=== PATIENT | male | born 1980 | race Caucasian/White ===

== ENCOUNTER 2019-10-04 20:53 | Inpatient (IN) | payer MEDICAID ==
[~2019-10-04] VITALS: Ht 175.3 cm; Wt 86.2 kg
[2019-10-04 21:04] VITALS: BP 154/84
[2019-10-04] MEDS ORDERED: OLAN10TA3 PO (21:18)
[2019-10-04] MEDS ORDERED: GABA-531 PO (21:18)
[2019-10-04] MEDS ORDERED: ESCI20TA PO (21:18)
[2019-10-04] MEDS ORDERED: BUPR-93 PO (21:18)
[2019-10-04] MEDS ORDERED: ZOLPIDEM TARTRATE 10 MG TABLET PO PRN (21:30)
[2019-10-04] MEDS ORDERED: HALOPERIDOL 5 MG TABLET PO PRN (21:30)
[2019-10-04 21:40] VITALS: BP 135/91
[2019-10-04] MEDS ORDERED: LISI-662 PO (21:41)
[2019-10-04] MEDS: OLANZapine 10 MG TABLET PO SCH (21:42)
[2019-10-04] MEDS ORDERED: PNEUMOCOCCAL VACCINE POLYVALENT 0.5 ML VIAL [PPSV23] IM ONE (21:45)
[2019-10-04 22:40] VITALS: BP 138/96
[2019-10-04 23:05] VITALS: BP 138/91
[2019-10-04 23:40] VITALS: BP 117/76
[2019-10-05] VITALS (10 sets, daily range): BP systolic 106–130; BP diastolic 56–83
[2019-10-05] MEDS ORDERED: IBUPROFEN 400 MG TABLET PO PRN (08:30)
[2019-10-05] MEDS ORDERED: ONDANSETRON HCL 4 MG TABLET PO PRN (08:30)
[2019-10-05] MEDS ORDERED: LOPERAMIDE HCL 2 MG CAPSULE PO PRN (08:30)
[2019-10-05] MEDS ORDERED: DOCUSATE SODIUM 100 MG CAPSULE PO PRN (08:30)
[2019-10-05] MEDS ORDERED: MAG HYDROX/AL HYDROX/SIMETH ES 30 ML SUSPENSION UDCUP PO PRN (08:30)
[2019-10-05] MEDS ORDERED: NICOTINE 14 MG/24 HOUR PATCH TD PRN (08:30)
[2019-10-05] MEDS ORDERED: GuaiFENesin/D-METHORPHAN [SUGAR-FREE] 200-20MG/10 ML SYRUP UDCUP PO PRN (08:30)
[2019-10-05] MEDS ORDERED: ALBUTEROL SULFATE HFA 90 MCG/PUFF 8 GM INHALER IH PRN (08:30)
[2019-10-05] MEDS ORDERED: CloNIDine HCL 0.1 MG TABLET PO PRN (08:30)
[2019-10-05] MEDS ORDERED: MAGNESIUM HYDROXIDE SUSPENSION 30 ML UDCUP PO PRN (08:30)
[2019-10-05] MEDS ORDERED: PETROLATUM,WHITE 28 GM JELLY TP PRN (08:30)
[2019-10-05] MEDS ORDERED: ACETAMINOPHEN 325 MG TABLET PO PRN (08:30)
[2019-10-05] MEDS: BuPROPion HCL XL 150 MG ER TABLET PO SCH (08:58)
[2019-10-05] MEDS: GABAPENTIN 300 MG CAPSULE PO SCH ×3 (08:58→16:11)
[2019-10-05] MEDS: CEPHALEXIN MONOHYDRATE 500 MG CAPSULE PO SCH ×2 (08:59→16:11)
[2019-10-05] MEDS: ESCITALOPRAM OXALATE 20 MG TABLET PO SCH (08:59)
[2019-10-05] MEDS: OLANZapine 10 MG TABLET PO SCH ×2 (08:59→16:11)
[2019-10-05] MEDS: LISINOPRIL 20 MG TABLET PO SCH (08:59)
[2019-10-05] MEDS ORDERED: LISINOPRIL 20 MG TABLET PO SCH (09:00)
[2019-10-05] MEDS ORDERED: GABAPENTIN 300 MG CAPSULE PO SCH (09:00)
[2019-10-05 09:44] LABS: CHOL/HDL RATIO 3.1 (4.2-7.3)
[2019-10-06] VITALS (11 sets, daily range): BP systolic 100–129; BP diastolic 57–77
[2019-10-06] MEDS: ESCITALOPRAM OXALATE 20 MG TABLET PO SCH (08:32)
[2019-10-06] MEDS: CEPHALEXIN MONOHYDRATE 500 MG CAPSULE PO SCH ×2 (08:32→16:34)
[2019-10-06] MEDS: BuPROPion HCL XL 150 MG ER TABLET PO SCH (08:32)
[2019-10-06] MEDS: LISINOPRIL 20 MG TABLET PO SCH (08:32)
[2019-10-06] MEDS: OLANZapine 10 MG TABLET PO SCH ×2 (08:33→16:34)
[2019-10-06] MEDS: GABAPENTIN 300 MG CAPSULE PO SCH ×3 (08:33→16:34)
[2019-10-06] MEDS: LORazepam 2 MG TABLET PO PRN (11:46)
[2019-10-06] MEDS ORDERED: IBUPROFEN 600 MG TABLET PO PRN (13:15)
[2019-10-06] MEDS ORDERED: HydrOXYzine PAMOATE 50 MG CAPSULE PO PRN (13:15)
[2019-10-06] MEDS ORDERED: MAG HYDROX/AL HYDROX/SIMETH ES 30 ML SUSPENSION UDCUP PO PRN (13:15)
[2019-10-06] MEDS ORDERED: CloNIDine HCL 0.1 MG TABLET PO PRN (13:15)
[2019-10-06] MEDS: CloNIDine HCL 0.1 MG TABLET PO SCH ×2 (16:34→21:04)
[2019-10-07] VITALS (8 sets, daily range): BP systolic 102–125; BP diastolic 68–78
[2019-10-07] MEDS: CloNIDine HCL 0.1 MG TABLET PO SCH ×4 (06:00→22:12)
[2019-10-07 07:42] LABS: BASOPHILS % (AUTO) 0.9 % (0.0-2.0); EOSINOPHILS % (AUTO) 2.5 % (1.0-6.0); HEMATOCRIT 41.8 % (41-53); HEMOGLOBIN 13.5 g/dL (13.5-17.5); LYMPHOCYTES # (AUTO) 1.4 K/uL (1.0-4.8); LYMPHOCYTES % (AUTO) 23.2 % (22.0-44.0); MEAN CORPUSCULAR HEMOGLOBIN 28.4 pg (26.0-34.0); MEAN CORPUSCULAR HGB CONC 32.2 G/dL (31.0-37.0); MEAN CORPUSCULAR VOLUME 88 fL (80-100); MONOCYTES # (AUTO) 0.3 K/uL (0.1-1.0); MONOCYTES % (AUTO) 5.4 % (2.0-9.0); NEUTROPHILS # (AUTO) 4.2 K/uL (1.8-7.7); PLATELET COUNT (AUTO) 304 K/uL (150-450); RED BLOOD CELL COUNT(AUTO) 4.75 MIL/uL (4.50-5.90); RED CELL DISTRIBUTION WIDTH 13.8 % (11.5-14.5)
[2019-10-07] MEDS: LISINOPRIL 20 MG TABLET PO SCH (08:12)
[2019-10-07] MEDS: BuPROPion HCL XL 150 MG ER TABLET PO SCH (08:12)
[2019-10-07] MEDS: GABAPENTIN 300 MG CAPSULE PO SCH ×3 (08:12→17:34)
[2019-10-07] MEDS: CEPHALEXIN MONOHYDRATE 500 MG CAPSULE PO SCH ×2 (08:12→17:35)
[2019-10-07] MEDS: ESCITALOPRAM OXALATE 20 MG TABLET PO SCH (08:12)
[2019-10-07] MEDS: OLANZapine 10 MG TABLET PO SCH ×2 (08:12→17:34)
[2019-10-07] MEDS: LORazepam 2 MG TABLET PO PRN (09:36)
[2019-10-08 05:33] VITALS: BP 128/86
[2019-10-08 05:35] VITALS: BP 128/86
[2019-10-08] MEDS: CloNIDine HCL 0.1 MG TABLET PO SCH ×4 (06:00→21:29)
[2019-10-08] MEDS: LORazepam 2 MG TABLET PO PRN (07:17)
[2019-10-08] MEDS: GABAPENTIN 300 MG CAPSULE PO SCH ×3 (08:25→16:08)
[2019-10-08] MEDS: LISINOPRIL 20 MG TABLET PO SCH (08:25)
[2019-10-08] MEDS: BuPROPion HCL XL 150 MG ER TABLET PO SCH (08:25)
[2019-10-08] MEDS: CEPHALEXIN MONOHYDRATE 500 MG CAPSULE PO SCH ×2 (08:25→16:08)
[2019-10-08] MEDS: ESCITALOPRAM OXALATE 20 MG TABLET PO SCH (08:25)
[2019-10-08] MEDS: OLANZapine 10 MG TABLET PO SCH ×2 (08:25→16:08)
[2019-10-08 08:41] VITALS: BP 135/85
[2019-10-08 12:30] VITALS: BP 121/60
[2019-10-08 16:00] VITALS: BP 108/65
[2019-10-08 16:15] VITALS: BP 108/65
[2019-10-09 05:38] VITALS: BP 127/72
[2019-10-09 05:39] VITALS: BP 127/72
[2019-10-09] MEDS: CloNIDine HCL 0.1 MG TABLET PO SCH ×4 (06:22→21:57)
[2019-10-09 08:55] VITALS: BP 116/71
[2019-10-09] MEDS: OLANZapine 10 MG TABLET PO SCH ×2 (08:57→16:32)
[2019-10-09] MEDS: BuPROPion HCL XL 150 MG ER TABLET PO SCH (08:57)
[2019-10-09] MEDS: GABAPENTIN 300 MG CAPSULE PO SCH ×3 (08:57→16:32)
[2019-10-09] MEDS: ESCITALOPRAM OXALATE 20 MG TABLET PO SCH (08:57)
[2019-10-09] MEDS: CEPHALEXIN MONOHYDRATE 500 MG CAPSULE PO SCH ×2 (08:57→17:21)
[2019-10-09] MEDS: LISINOPRIL 20 MG TABLET PO SCH (08:57)
[2019-10-09] MEDS: LORazepam 2 MG TABLET PO PRN (09:36)
[2019-10-09 12:35] VITALS: BP 112/75
[2019-10-09 16:00] VITALS: BP 124/75
[2019-10-09 16:16] VITALS: BP 124/75
[2019-10-10] VITALS (7 sets, daily range): BP systolic 101–133; BP diastolic 63–78
[2019-10-10] MEDS: LORazepam 2 MG TABLET PO PRN (05:58)
[2019-10-10] MEDS: CloNIDine HCL 0.1 MG TABLET PO SCH ×2 (06:15→12:09)
[2019-10-10] MEDS: ESCITALOPRAM OXALATE 20 MG TABLET PO SCH (08:10)
[2019-10-10] MEDS: BuPROPion HCL XL 150 MG ER TABLET PO SCH (08:10)
[2019-10-10] MEDS: LISINOPRIL 20 MG TABLET PO SCH (08:10)
[2019-10-10] MEDS: GABAPENTIN 300 MG CAPSULE PO SCH ×2 (08:10→12:09)
[2019-10-10] MEDS: OLANZapine 10 MG TABLET PO SCH (08:10)
== END 2019-10-10 20:03 | disposition home or self-care (01) | DRG 750 ==
LOC: B2S 21:33
PROVIDERS: ADMIT Psychiatry & Neurology Psychiatry; ATTEND Psychiatry & Neurology Psychiatry
DX: F25.9 Schizoaffective disorder, unspecified (principal); R45.851 Suicidal ideations; F10.10 Alcohol abuse, uncomplicated; F15.90 Other stimulant use, unspecified, uncomplicated; F32.9 Major depressive disorder, single episode, unspecified; F41.9 Anxiety disorder, unspecified; I10 Essential (primary) hypertension; Z79.899 Other long term (current) drug therapy; Z91.5 Personal history of self-harm
CPT/HCPCS: 84439; 84443; 87081

== ENCOUNTER 2019-10-21 16:22 | Inpatient (IN) | payer MEDICAID ==
[~2019-10-21] VITALS: Ht 175.3 cm; Wt 86.8 kg
[~2019-10-21 16:22] MED LIST: BUPR-93 PO; ESCI20TA PO; GABA-531 PO; LISI-662 PO; OLAN10TA3 PO
[2019-10-21] MEDS ORDERED: HALOPERIDOL 5 MG TABLET PO PRN (22:00)
[2019-10-21] MEDS ORDERED: ZOLPIDEM TARTRATE 10 MG TABLET PO PRN (22:00)
[2019-10-21 22:42] VITALS: BP 133/75
[2019-10-21] MEDS ORDERED: PNEUMOCOCCAL VACCINE POLYVALENT 0.5 ML VIAL [PPSV23] IM ONE (22:45)
[2019-10-22] MEDS: LORazepam 2 MG TABLET PO PRN (00:50)
[2019-10-22 01:17] VITALS: BP 134/94
[2019-10-22 08:57] VITALS: BP 140/81
[2019-10-22] MEDS ORDERED: ONDANSETRON HCL 4 MG TABLET PO PRN (13:15)
[2019-10-22] MEDS ORDERED: DOCUSATE SODIUM 100 MG CAPSULE PO PRN (13:15)
[2019-10-22] MEDS ORDERED: IBUPROFEN 400 MG TABLET PO PRN (13:15)
[2019-10-22] MEDS ORDERED: ACETAMINOPHEN 325 MG TABLET PO PRN (13:15)
[2019-10-22] MEDS ORDERED: MAG HYDROX/AL HYDROX/SIMETH ES 30 ML SUSPENSION UDCUP PO PRN (13:15)
[2019-10-22] MEDS ORDERED: MAGNESIUM HYDROXIDE SUSPENSION 30 ML UDCUP PO PRN (13:15)
[2019-10-22] MEDS ORDERED: CloNIDine HCL 0.1 MG TABLET PO PRN (13:15)
[2019-10-22] MEDS ORDERED: PETROLATUM,WHITE 28 GM JELLY TP PRN (13:15)
[2019-10-22] MEDS: OLANZapine 10 MG TABLET PO SCH ×2 (13:15→17:11)
[2019-10-22] MEDS ORDERED: ALBUTEROL SULFATE HFA 90 MCG/PUFF 8 GM INHALER IH PRN (13:15)
[2019-10-22] MEDS ORDERED: NICOTINE 14 MG/24 HOUR PATCH TD PRN (13:15)
[2019-10-22] MEDS ORDERED: GuaiFENesin/D-METHORPHAN [SUGAR-FREE] 200-20MG/10 ML SYRUP UDCUP PO PRN (13:15)
[2019-10-22] MEDS ORDERED: LOPERAMIDE HCL 2 MG CAPSULE PO PRN (13:15)
[2019-10-22] MEDS: ESCITALOPRAM OXALATE 20 MG TABLET PO SCH (13:16)
[2019-10-22] MEDS: BuPROPion HCL XL 150 MG ER TABLET PO SCH (13:16)
[2019-10-22] MEDS: GABAPENTIN 300 MG CAPSULE PO SCH ×2 (13:16→17:10)
[2019-10-22 16:32] VITALS: BP 122/77
[2019-10-23 06:01] VITALS: BP 122/86
[2019-10-23 08:14] VITALS: BP 138/42
[2019-10-23 08:15] LABS: BASOPHILS % (AUTO) 0.6 % (0.0-2.0); EOSINOPHILS % (AUTO) 2.8 % (1.0-6.0); HEMATOCRIT 42.6 % (41-53); HEMOGLOBIN 13.7 g/dL (13.5-17.5); LYMPHOCYTES # (AUTO) 1.3 K/uL (1.0-4.8); LYMPHOCYTES % (AUTO) 22.9 % (22.0-44.0); MEAN CORPUSCULAR HEMOGLOBIN 28.2 pg (26.0-34.0); MEAN CORPUSCULAR HGB CONC 32.2 G/dL (31.0-37.0); MEAN CORPUSCULAR VOLUME 87 fL (80-100); MONOCYTES # (AUTO) 0.4 K/uL (0.1-1.0); MONOCYTES % (AUTO) 6.4 % (2.0-9.0); NEUTROPHILS # (AUTO) 3.9 K/uL (1.8-7.7); NEUTROPHILS % (AUTO) 67.3 % (40.0-70.0); PLATELET COUNT (AUTO) 228 K/uL (150-450); RED BLOOD CELL COUNT(AUTO) 4.88 MIL/uL (4.50-5.90); RED CELL DISTRIBUTION WIDTH 13.5 % (11.5-14.5)
[2019-10-23 08:32] LABS: ALANINE AMINOTRANSFERASE 348 U/L (12-78); ALBUMIN 3.5 g/dL (3.4-5.0); ALKALINE PHOSPHATASE 95 U/L (46-116); ANION GAP 7 mmol/L (8-16); ASPARTATE AMINOTRANSFERASE 160 U/L (15-37); BILIRUBIN,TOTAL 0.6 mg/dL (0.1-1.0); CALCIUM, TOTAL 8.9 mg/dL (8.8-10.5); CARBON DIOXIDE 28 mmol/L (22-29); CHLORIDE 108 mmol/L (98-107); CHOL/HDL RATIO 2.5 (4.2-7.3); CHOLESTEROL 98 mg/dL (131-200); CREATININE 0.75 mg/dL (0.60-1.30); FREE T4 (FREE THYROXINE) 1.17 ng/dL (0.76-1.46); GLOMERULAR FILTR. RATE CALC > 60 mL/min (>60); GLUCOSE,RANDOM 85 mg/dL (70-110); HDL CHOLESTEROL 39 mg/dL (40-60); LDL CHOL (CALC.) 42 mg/dL (0-130); POTASSIUM 4.1 mmol/L (3.5-5.1); SODIUM SERUM 143 mmol/L (136-145); THYROID STIMULATING HORMONE 0.04 uIU/mL (0.36-3.74); TOTAL PROTEIN, SERUM 6.7 g/dL (6.4-8.2); TRIGLYCERIDES 85 mg/dL (15-150); UREA NITROGEN, BLOOD 17 mg/dL (7-18)
[2019-10-23] MEDS: ESCITALOPRAM OXALATE 20 MG TABLET PO SCH (09:23)
[2019-10-23] MEDS: BuPROPion HCL XL 150 MG ER TABLET PO SCH (09:23)
[2019-10-23] MEDS: LISINOPRIL 20 MG TABLET PO SCH (09:23)
[2019-10-23] MEDS: OLANZapine 10 MG TABLET PO SCH ×2 (09:23→16:46)
[2019-10-23] MEDS: GABAPENTIN 300 MG CAPSULE PO SCH ×3 (09:23→16:46)
[2019-10-23] MEDS: LORazepam 2 MG TABLET PO PRN ×2 (10:13→21:12)
[2019-10-23 16:13] VITALS: BP 136/77
[2019-10-24 06:37] VITALS: BP 127/71
[2019-10-24 08:40] VITALS: BP 130/79
[2019-10-24] MEDS: ESCITALOPRAM OXALATE 20 MG TABLET PO SCH (09:07)
[2019-10-24] MEDS: BuPROPion HCL XL 150 MG ER TABLET PO SCH (09:07)
[2019-10-24] MEDS: GABAPENTIN 300 MG CAPSULE PO SCH ×3 (09:07→16:56)
[2019-10-24] MEDS: OLANZapine 10 MG TABLET PO SCH ×2 (09:07→16:56)
[2019-10-24] MEDS: LISINOPRIL 20 MG TABLET PO SCH (09:07)
[2019-10-24] MEDS: LORazepam 2 MG TABLET PO PRN (12:01)
[2019-10-24 16:14] VITALS: BP 129/80
[2019-10-25 05:09] VITALS: BP 122/70
[2019-10-25 08:21] VITALS: BP 122/77
[2019-10-25] MEDS: BuPROPion HCL XL 150 MG ER TABLET PO SCH (08:29)
[2019-10-25] MEDS: OLANZapine 10 MG TABLET PO SCH ×2 (08:29→16:38)
[2019-10-25] MEDS: GABAPENTIN 300 MG CAPSULE PO SCH ×3 (08:29→16:38)
[2019-10-25] MEDS: LISINOPRIL 20 MG TABLET PO SCH (08:29)
[2019-10-25] MEDS: ESCITALOPRAM OXALATE 20 MG TABLET PO SCH (08:29)
[2019-10-25] MEDS: LORazepam 2 MG TABLET PO PRN (15:28)
[2019-10-25 16:23] VITALS: BP 130/85
[2019-10-26 06:04] VITALS: BP 107/76
[2019-10-26] MEDS: BuPROPion HCL XL 150 MG ER TABLET PO SCH (08:31)
[2019-10-26] MEDS: OLANZapine 10 MG TABLET PO SCH ×2 (08:31→16:59)
[2019-10-26] MEDS: LISINOPRIL 20 MG TABLET PO SCH (08:31)
[2019-10-26] MEDS: GABAPENTIN 300 MG CAPSULE PO SCH ×3 (08:31→16:59)
[2019-10-26] MEDS: ESCITALOPRAM OXALATE 20 MG TABLET PO SCH (08:32)
[2019-10-26 08:34] VITALS: BP 131/73
[2019-10-26] MEDS: LORazepam 2 MG TABLET PO PRN (10:09)
[2019-10-26 16:14] VITALS: BP 119/73
[2019-10-27 01:16] VITALS: BP 114/74
[2019-10-27] MEDS: LORazepam 2 MG TABLET PO PRN ×2 (08:41→16:26)
[2019-10-27] MEDS: BuPROPion HCL XL 150 MG ER TABLET PO SCH (08:41)
[2019-10-27] MEDS: GABAPENTIN 300 MG CAPSULE PO SCH ×3 (08:41→16:26)
[2019-10-27] MEDS: OLANZapine 10 MG TABLET PO SCH ×2 (08:41→16:26)
[2019-10-27] MEDS: LISINOPRIL 20 MG TABLET PO SCH (08:41)
[2019-10-27] MEDS: ESCITALOPRAM OXALATE 20 MG TABLET PO SCH (08:41)
[2019-10-27 08:55] VITALS: BP 143/91
[2019-10-27 17:04] VITALS: BP 112/74
[2019-10-28 02:56] VITALS: BP 108/75
[2019-10-28 08:19] LABS: ANION GAP 8 mmol/L (8-16); CARBON DIOXIDE 29 mmol/L (22-29); CHLORIDE 108 mmol/L (98-107); CREATININE 0.79 mg/dL (0.60-1.30); GLUCOSE,RANDOM 90 mg/dL (70-110); POTASSIUM 4.2 mmol/L (3.5-5.1); SODIUM SERUM 145 mmol/L (136-145); UREA NITROGEN, BLOOD 16 mg/dL (7-18)
[2019-10-28] MEDS: BuPROPion HCL XL 150 MG ER TABLET PO SCH (08:19)
[2019-10-28] MEDS: ESCITALOPRAM OXALATE 20 MG TABLET PO SCH (08:19)
[2019-10-28] MEDS: LISINOPRIL 20 MG TABLET PO SCH (08:19)
[2019-10-28] MEDS: OLANZapine 10 MG TABLET PO SCH ×2 (08:19→16:34)
[2019-10-28] MEDS: GABAPENTIN 300 MG CAPSULE PO SCH ×3 (08:19→16:34)
[2019-10-28 08:20] LABS: ALANINE AMINOTRANSFERASE 424 U/L (12-78); ALBUMIN 3.5 g/dL (3.4-5.0); ALKALINE PHOSPHATASE 109 U/L (46-116); ASPARTATE AMINOTRANSFERASE 173 U/L (15-37); BILIRUBIN,TOTAL 0.4 mg/dL (0.1-1.0); CALCIUM, TOTAL 9.2 mg/dL (8.8-10.5); GLOMERULAR FILTR. RATE CALC > 60 mL/min (>60); TOTAL PROTEIN, SERUM 6.9 g/dL (6.4-8.2)
[2019-10-28 08:34] VITALS: BP 128/83
[2019-10-28] MEDS: LORazepam 2 MG TABLET PO PRN ×2 (10:11→16:49)
[2019-10-28 16:16] VITALS: BP 120/79
[2019-10-29 00:34] VITALS: BP 107/68
[2019-10-29] MEDS: LISINOPRIL 20 MG TABLET PO SCH (08:06)
[2019-10-29] MEDS: MULTIVITAMINS WITH MINERALS, THERAPEUTIC TABLET PO SCH (08:06)
[2019-10-29] MEDS: ESCITALOPRAM OXALATE 20 MG TABLET PO SCH (08:06)
[2019-10-29] MEDS: FOLIC ACID 1 MG TABLET PO SCH (08:06)
[2019-10-29] MEDS: OLANZapine 10 MG TABLET PO SCH ×2 (08:07→16:21)
[2019-10-29] MEDS: BuPROPion HCL XL 150 MG ER TABLET PO SCH (08:07)
[2019-10-29] MEDS: GABAPENTIN 300 MG CAPSULE PO SCH ×3 (08:07→16:22)
[2019-10-29] MEDS: THIAMINE HCL 100 MG TABLET PO SCH (08:07)
[2019-10-29 08:22] VITALS: BP 107/60
[2019-10-29] MEDS: LORazepam 2 MG TABLET PO PRN ×2 (13:23→21:41)
[2019-10-29 16:14] VITALS: BP 116/82
[2019-10-30 06:51] VITALS: BP 137/81
[2019-10-30] MEDS: THIAMINE HCL 100 MG TABLET PO SCH (08:48)
[2019-10-30] MEDS: LISINOPRIL 20 MG TABLET PO SCH (08:48)
[2019-10-30] MEDS: BuPROPion HCL XL 150 MG ER TABLET PO SCH (08:48)
[2019-10-30] MEDS: GABAPENTIN 300 MG CAPSULE PO SCH ×2 (08:48→12:57)
[2019-10-30] MEDS: OLANZapine 10 MG TABLET PO SCH (08:48)
[2019-10-30] MEDS: FOLIC ACID 1 MG TABLET PO SCH (08:48)
[2019-10-30] MEDS: ESCITALOPRAM OXALATE 20 MG TABLET PO SCH (08:48)
[2019-10-30] MEDS: MULTIVITAMINS WITH MINERALS, THERAPEUTIC TABLET PO SCH (08:48)
== END 2019-10-30 13:50 | disposition home or self-care (01) | DRG 750 ==
LOC: B2S 22:01
PROVIDERS: ADMIT Psychiatry & Neurology Psychiatry; ATTEND Psychiatry & Neurology Psychiatry
DX: F25.9 Schizoaffective disorder, unspecified (principal); Z59.0 Homelessness; R45.851 Suicidal ideations; F10.10 Alcohol abuse, uncomplicated; F19.20 Other psychoactive substance dependence, uncomplicated; I10 Essential (primary) hypertension; Y90.9 Presence of alcohol in blood, level not specified; F25.1 Schizoaffective disorder, depressive type; Z91.5 Personal history of self-harm; Z91.14 Patient's other noncompliance with medication regimen; Z28.21 Immunization not carried out because of patient refusal
CPT/HCPCS: 83036; 84439; 84443; 87081

== ENCOUNTER 2019-11-29 09:11 | Inpatient (IN) | payer MEDICAID ==
[~2019-11-29] VITALS: Ht 175.3 cm; Wt 84.8 kg
[~2019-11-29 09:11] MED LIST changes: -ESCI20TA PO; +ESCI20TA87 PO; +GABA-1181 PO; -GABA-531 PO
[2019-11-29 13:19] VITALS: BP 138/98
[2019-11-29] MEDS ORDERED: PNEUMOCOCCAL VACCINE POLYVALENT 0.5 ML VIAL [PPSV23] IM ONE (13:30)
[2019-11-29 16:00] VITALS: BP 137/91
[2019-11-29] MEDS ORDERED: CloNIDine HCL 0.1 MG TABLET PO PRN (16:00)
[2019-11-29] MEDS ORDERED: DOCUSATE SODIUM 100 MG CAPSULE PO PRN (16:00)
[2019-11-29] MEDS ORDERED: MAGNESIUM HYDROXIDE SUSPENSION 30 ML UDCUP PO PRN (16:00)
[2019-11-29] MEDS ORDERED: GuaiFENesin/D-METHORPHAN [SUGAR-FREE] 200-20MG/10 ML SYRUP UDCUP PO PRN (16:00)
[2019-11-29] MEDS ORDERED: ALBUTEROL SULFATE HFA 90 MCG/PUFF 8 GM INHALER IH PRN (16:00)
[2019-11-29] MEDS ORDERED: IBUPROFEN 400 MG TABLET PO PRN (16:00)
[2019-11-29] MEDS ORDERED: PETROLATUM,WHITE 28 GM JELLY TP PRN (16:00)
[2019-11-29] MEDS ORDERED: ACETAMINOPHEN 325 MG TABLET PO PRN (16:00)
[2019-11-29] MEDS ORDERED: NICOTINE 14 MG/24 HOUR PATCH TD PRN (16:00)
[2019-11-29] MEDS ORDERED: LOPERAMIDE HCL 2 MG CAPSULE PO PRN (16:00)
[2019-11-29] MEDS ORDERED: ONDANSETRON HCL 4 MG TABLET PO PRN (16:00)
[2019-11-29] MEDS ORDERED: MAG HYDROX/AL HYDROX/SIMETH ES 30 ML SUSPENSION UDCUP PO PRN (16:00)
[2019-11-29] MEDS: OLANZapine 10 MG TABLET PO SCH (16:31)
[2019-11-29] MEDS: GABAPENTIN 300 MG CAPSULE PO SCH (16:31)
[2019-11-29] MEDS: LORazepam 2 MG TABLET PO PRN (16:48)
[2019-11-30 00:03] VITALS: BP 128/88
[2019-11-30 08:25] LABS: BASOPHILS % (AUTO) 0.6 % (0.0-2.0); EOSINOPHILS % (AUTO) 3.1 % (1.0-6.0); HEMATOCRIT 40.7 % (41-53); HEMOGLOBIN 13.7 g/dL (13.5-17.5); LYMPHOCYTES # (AUTO) 1.5 K/uL (1.0-4.8); LYMPHOCYTES % (AUTO) 24.8 % (22.0-44.0); MEAN CORPUSCULAR HGB CONC 33.5 G/dL (31.0-37.0); MEAN CORPUSCULAR VOLUME 86 fL (80-100); MONOCYTES # (AUTO) 0.4 K/uL (0.1-1.0); MONOCYTES % (AUTO) 6.6 % (2.0-9.0); NEUTROPHILS % (AUTO) 64.9 % (40.0-70.0); PLATELET COUNT (AUTO) 238 K/uL (150-450); RED BLOOD CELL COUNT(AUTO) 4.71 MIL/uL (4.50-5.90); RED CELL DISTRIBUTION WIDTH 13.2 % (11.5-14.5)
[2019-11-30 08:33] LABS: HEMOGLOBIN A1C 5.3 % (3.8-5.6)
[2019-11-30] MEDS: GABAPENTIN 300 MG CAPSULE PO SCH ×3 (08:42→16:43)
[2019-11-30] MEDS: OLANZapine 10 MG TABLET PO SCH ×2 (08:42→16:43)
[2019-11-30] MEDS: ESCITALOPRAM OXALATE 20 MG TABLET PO SCH (08:42)
[2019-11-30] MEDS: BuPROPion HCL XL 150 MG ER TABLET PO SCH (08:42)
[2019-11-30 08:50] VITALS: BP 131/79
[2019-11-30 08:59] LABS: ALANINE AMINOTRANSFERASE 183 U/L (12-78); ALBUMIN 3.5 g/dL (3.4-5.0); ALKALINE PHOSPHATASE 81 U/L (46-116); ANION GAP 9 mmol/L (8-16); ASPARTATE AMINOTRANSFERASE 82 U/L (15-37); BILIRUBIN,TOTAL 0.7 mg/dL (0.1-1.0); CARBON DIOXIDE 27 mmol/L (22-29); CHLORIDE 106 mmol/L (98-107); CHOL/HDL RATIO 2.8 (4.2-7.3); CHOLESTEROL 99 mg/dL (131-200); CREATININE 0.85 mg/dL (0.60-1.30); GLOMERULAR FILTR. RATE CALC > 60 mL/min (>60); GLUCOSE,RANDOM 92 mg/dL (70-110); HDL CHOLESTEROL 35 mg/dL (40-60); LDL CHOL (CALC.) 48 mg/dL (0-130); POTASSIUM 4.4 mmol/L (3.5-5.1); SODIUM SERUM 142 mmol/L (136-145); TOTAL PROTEIN, SERUM 6.8 g/dL (6.4-8.2); TRIGLYCERIDES 80 mg/dL (15-150); UREA NITROGEN, BLOOD 13 mg/dL (7-18)
[2019-11-30 17:18] VITALS: BP_SYST 133; BP_SYST 155; BP_DIAS 83; BP_DIAS 89
[2019-11-30] MEDS: LORazepam 2 MG TABLET PO PRN (20:19)
[2019-12-01] VITALS: BP 136/91
[2019-12-01 08:06] VITALS: BP 140/70
[2019-12-01] MEDS: GABAPENTIN 300 MG CAPSULE PO SCH ×3 (08:27→16:06)
[2019-12-01] MEDS: ESCITALOPRAM OXALATE 20 MG TABLET PO SCH (08:27)
[2019-12-01] MEDS: OLANZapine 10 MG TABLET PO SCH ×2 (08:27→16:06)
[2019-12-01] MEDS: BuPROPion HCL XL 150 MG ER TABLET PO SCH (08:27)
[2019-12-01] MEDS: LORazepam 2 MG TABLET PO PRN ×2 (10:27→20:27)
[2019-12-01] MEDS: MUPIROCIN CALCIUM 2% 22 GM OINTMENT NASAL SCH (16:07)
[2019-12-01 16:39] VITALS: BP 123/70
[2019-12-01] MEDS: OLANZapine 5 MG RAPDIS TABLET PO PRN (20:51)
[2019-12-02 00:17] VITALS: BP 144/101
[2019-12-02 08:24] VITALS: BP 132/97
[2019-12-02] MEDS: BuPROPion HCL XL 150 MG ER TABLET PO SCH (08:57)
[2019-12-02] MEDS: MUPIROCIN CALCIUM 2% 22 GM OINTMENT NASAL SCH ×2 (08:57→17:03)
[2019-12-02] MEDS: ESCITALOPRAM OXALATE 20 MG TABLET PO SCH (08:57)
[2019-12-02] MEDS: OLANZapine 10 MG TABLET PO SCH ×2 (08:57→17:03)
[2019-12-02] MEDS: GABAPENTIN 300 MG CAPSULE PO SCH ×3 (08:57→17:03)
[2019-12-02] MEDS ORDERED: ZOLPIDEM TARTRATE 10 MG TABLET PO PRN (11:30)
[2019-12-02 16:26] VITALS: BP 160/92
[2019-12-02 18:42] VITALS: BP 145/96
[2019-12-03 06:54] VITALS: BP 146/82
[2019-12-03 08:30] VITALS: BP 151/98
[2019-12-03] MEDS: MUPIROCIN CALCIUM 2% 22 GM OINTMENT NASAL SCH ×2 (09:33→17:29)
[2019-12-03] MEDS: BuPROPion HCL XL 150 MG ER TABLET PO SCH (09:35)
[2019-12-03] MEDS: GABAPENTIN 300 MG CAPSULE PO SCH ×3 (09:35→16:33)
[2019-12-03] MEDS: OLANZapine 10 MG TABLET PO SCH ×2 (09:35→16:33)
[2019-12-03] MEDS: ESCITALOPRAM OXALATE 20 MG TABLET PO SCH (09:36)
[2019-12-03 16:20] VITALS: BP 150/100
[2019-12-03 17:20] VITALS: BP 137/97
[2019-12-04 01:26] VITALS: BP 120/65
[2019-12-04] MEDS: GABAPENTIN 300 MG CAPSULE PO SCH ×3 (09:13→16:31)
[2019-12-04] MEDS: OLANZapine 10 MG TABLET PO SCH ×2 (09:13→16:31)
[2019-12-04] MEDS: ESCITALOPRAM OXALATE 20 MG TABLET PO SCH (09:13)
[2019-12-04] MEDS: BuPROPion HCL XL 150 MG ER TABLET PO SCH (09:13)
[2019-12-04] MEDS: MUPIROCIN CALCIUM 2% 22 GM OINTMENT NASAL SCH ×2 (09:14→17:16)
[2019-12-04 10:38] VITALS: BP 133/88
[2019-12-04 16:07] VITALS: BP 136/93
[2019-12-05 01:19] VITALS: BP 133/89
[2019-12-05 08:11] VITALS: BP 140/89
[2019-12-05] MEDS: ESCITALOPRAM OXALATE 20 MG TABLET PO SCH (08:49)
[2019-12-05] MEDS: BuPROPion HCL XL 150 MG ER TABLET PO SCH (08:49)
[2019-12-05] MEDS: GABAPENTIN 300 MG CAPSULE PO SCH ×3 (08:49→16:34)
[2019-12-05] MEDS: OLANZapine 10 MG TABLET PO SCH ×2 (08:49→17:15)
[2019-12-05] MEDS: MUPIROCIN CALCIUM 2% 22 GM OINTMENT NASAL SCH ×2 (08:53→16:35)
[2019-12-05 16:00] VITALS: BP 126/91
[2019-12-05] MEDS: OLANZapine 5 MG RAPDIS TABLET PO PRN (16:34)
[2019-12-06 05:34] VITALS: BP 135/93
[2019-12-06 08:06] VITALS: BP 153/93
[2019-12-06] MEDS: GABAPENTIN 300 MG CAPSULE PO SCH ×2 (09:19→12:47)
[2019-12-06] MEDS: OLANZapine 10 MG TABLET PO SCH (09:19)
[2019-12-06] MEDS: ESCITALOPRAM OXALATE 20 MG TABLET PO SCH (09:19)
[2019-12-06] MEDS: MUPIROCIN CALCIUM 2% 22 GM OINTMENT NASAL SCH (09:20)
[2019-12-06] MEDS: BuPROPion HCL XL 150 MG ER TABLET PO SCH (09:20)
== END 2019-12-06 15:30 | disposition home or self-care (01) | DRG 750 ==
LOC: B2S 12:36
PROVIDERS: ADMIT Psychiatry & Neurology Psychiatry; ATTEND Psychiatry & Neurology Psychiatry
DX: F25.9 Schizoaffective disorder, unspecified (principal); R45.851 Suicidal ideations; R74.0 Nonspecific elevation of levels of transaminase and lactic acid dehydrogenase [LDH]; E78.5 Hyperlipidemia, unspecified; F10.10 Alcohol abuse, uncomplicated; G47.00 Insomnia, unspecified; I10 Essential (primary) hypertension; F41.9 Anxiety disorder, unspecified; Z59.0 Homelessness
CPT/HCPCS: 83036; 86592; 87081

== ENCOUNTER 2020-03-01 05:43 | Inpatient (IN) | payer MEDICAID ==
[~2020-03-01] VITALS: Ht 175.3 cm; Wt 87.8 kg
[~2020-03-01 05:43] MED LIST changes: -LISI-662 PO
[2020-03-01 06:55] VITALS: BP 126/71
[2020-03-01] MEDS ORDERED: NICOTINE 14 MG/24 HOUR PATCH TD PRN (07:30)
[2020-03-01] MEDS ORDERED: GuaiFENesin/D-METHORPHAN [SUGAR-FREE] 200-20MG/10 ML SYRUP UDCUP PO PRN (07:30)
[2020-03-01] MEDS ORDERED: LOPERAMIDE HCL 2 MG CAPSULE PO PRN (07:30)
[2020-03-01] MEDS ORDERED: CloNIDine HCL 0.1 MG TABLET PO PRN (07:30)
[2020-03-01] MEDS ORDERED: DOCUSATE SODIUM 100 MG CAPSULE PO PRN (07:30)
[2020-03-01] MEDS ORDERED: IBUPROFEN 400 MG TABLET PO PRN (07:30)
[2020-03-01] MEDS ORDERED: PETROLATUM,WHITE 28 GM JELLY TP PRN (07:30)
[2020-03-01] MEDS ORDERED: MAG HYDROX/AL HYDROX/SIMETH ES 30 ML SUSPENSION UDCUP PO PRN (07:30)
[2020-03-01] MEDS ORDERED: ONDANSETRON HCL 4 MG TABLET PO PRN (07:30)
[2020-03-01] MEDS ORDERED: MAGNESIUM HYDROXIDE SUSPENSION 30 ML UDCUP PO PRN (07:30)
[2020-03-01] MEDS ORDERED: ALBUTEROL SULFATE HFA 90 MCG/PUFF 8 GM INHALER IH PRN (07:30)
[2020-03-01] MEDS ORDERED: ACETAMINOPHEN 325 MG TABLET PO PRN (07:30)
[2020-03-01] MEDS ORDERED: PNEUMOCOCCAL VACCINE POLYVALENT 0.5 ML VIAL [PPSV23] IM ONE (08:00)
[2020-03-01 08:43] VITALS: BP 134/80
[2020-03-01] MEDS: BuPROPion HCL XL 150 MG ER TABLET PO SCH (10:07)
[2020-03-01] MEDS: OLANZapine 10 MG TABLET PO SCH ×2 (10:07→16:31)
[2020-03-01] MEDS: LORazepam 2 MG TABLET PO PRN ×2 (10:17→16:58)
[2020-03-01] MEDS: GABAPENTIN 300 MG CAPSULE PO SCH ×2 (12:40→16:31)
[2020-03-01 16:22] VITALS: BP 113/85
[2020-03-02 05:50] VITALS: BP 119/76
[2020-03-02 08:16] LABS: BASOPHILS % (AUTO) 0.8 % (0.0-2.0); HEMATOCRIT 39.7 % (41-53); HEMOGLOBIN 13.3 g/dL (13.5-17.5); LYMPHOCYTES # (AUTO) 1.4 K/uL (1.0-4.8); LYMPHOCYTES % (AUTO) 20.4 % (22.0-44.0); MEAN CORPUSCULAR HEMOGLOBIN 29.5 pg (26.0-34.0); MEAN CORPUSCULAR HGB CONC 33.5 G/dL (31.0-37.0); MEAN CORPUSCULAR VOLUME 88 fL (80-100); MONOCYTES # (AUTO) 0.3 K/uL (0.1-1.0); MONOCYTES % (AUTO) 4.5 % (2.0-9.0); NEUTROPHILS # (AUTO) 4.9 K/uL (1.8-7.7); NEUTROPHILS % (AUTO) 72.3 % (40.0-70.0); PLATELET COUNT (AUTO) 211 K/uL (150-450); RED BLOOD CELL COUNT(AUTO) 4.51 MIL/uL (4.50-5.90); RED CELL DISTRIBUTION WIDTH 13.4 % (11.5-14.5)
[2020-03-02 08:33] VITALS: BP 125/75
[2020-03-02 08:36] LABS: ALANINE AMINOTRANSFERASE 120 U/L (12-78); ALBUMIN 3.4 g/dL (3.4-5.0); ALKALINE PHOSPHATASE 71 U/L (46-116); ANION GAP 7 mmol/L (8-16); ASPARTATE AMINOTRANSFERASE 47 U/L (15-37); BILIRUBIN,TOTAL 0.6 mg/dL (0.1-1.0); CALCIUM, TOTAL 8.8 mg/dL (8.8-10.5); CARBON DIOXIDE 23 mmol/L (22-29); CHLORIDE 106 mmol/L (98-107); CHOLESTEROL 105 mg/dL (131-200); CREATININE 1.07 mg/dL (0.60-1.30); FREE T4 (FREE THYROXINE) 1.19 ng/dL (0.76-1.46); GLOMERULAR FILTR. RATE CALC > 60 mL/min (>60); GLUCOSE,RANDOM 96 mg/dL (70-110); HDL CHOLESTEROL 35 mg/dL (40-60); LDL CHOL (CALC.) 51 mg/dL (0-130); POTASSIUM 4.1 mmol/L (3.5-5.1); SODIUM SERUM 136 mmol/L (136-145); THYROID STIMULATING HORMONE 0.04 uIU/mL (0.36-3.74); TOTAL PROTEIN, SERUM 6.8 g/dL (6.4-8.2); TRIGLYCERIDES 96 mg/dL (15-150); UREA NITROGEN, BLOOD 23 mg/dL (7-18)
[2020-03-02 08:37] LABS: HEMOGLOBIN A1C 5.3 % (3.8-5.6)
[2020-03-02] MEDS: BuPROPion HCL XL 150 MG ER TABLET PO SCH (09:12)
[2020-03-02] MEDS: GABAPENTIN 300 MG CAPSULE PO SCH ×3 (09:12→17:04)
[2020-03-02] MEDS: OLANZapine 10 MG TABLET PO SCH ×2 (09:12→17:04)
[2020-03-02] MEDS: ESCITALOPRAM OXALATE 20 MG TABLET PO SCH (09:13)
[2020-03-02] MEDS: LORazepam 2 MG TABLET PO PRN ×2 (11:30→17:04)
[2020-03-02 16:51] VITALS: BP 154/93
[2020-03-02] MEDS: ZOLPIDEM TARTRATE 10 MG TABLET PO PRN (20:39)
[2020-03-02] MEDS ORDERED: DiphenhydrAMINE HCL 50 MG/ML VIAL IM ONE (21:45)
[2020-03-02] MEDS ORDERED: LORazepam 2 MG/ML VIAL IM ONE (21:45)
[2020-03-02] MEDS ORDERED: HALOPERIDOL LACTATE 5 MG/ML VIAL IM ONE (21:45)
[2020-03-02] MEDS ORDERED: LORazepam 2 MG/ML VIAL ONE (21:46)
[2020-03-02] MEDS ORDERED: DiphenhydrAMINE HCL 50 MG/ML VIAL ONE (21:46)
[2020-03-02] MEDS ORDERED: HALOPERIDOL LACTATE 5 MG/ML VIAL ONE (21:46)
[2020-03-03 02:15] VITALS: BP 135/100
[2020-03-03 08:39] VITALS: BP 132/92
[2020-03-03] MEDS: ESCITALOPRAM OXALATE 20 MG TABLET PO SCH (09:42)
[2020-03-03] MEDS: OLANZapine 10 MG TABLET PO SCH ×2 (09:42→16:40)
[2020-03-03] MEDS: BuPROPion HCL XL 150 MG ER TABLET PO SCH (09:42)
[2020-03-03] MEDS: GABAPENTIN 300 MG CAPSULE PO SCH ×3 (09:42→16:40)
[2020-03-03 16:23] VITALS: BP 136/74
[2020-03-03] MEDS: LORazepam 2 MG TABLET PO PRN (16:40)
[2020-03-03] MEDS: HALOPERIDOL 5 MG TABLET PO PRN (16:40)
[2020-03-03] MEDS: MUPIROCIN CALCIUM 2% 22 GM OINTMENT NASAL SCH (20:26)
[2020-03-04] MEDS: GABAPENTIN 300 MG CAPSULE PO SCH ×3 (09:25→16:44)
[2020-03-04] MEDS: BuPROPion HCL XL 150 MG ER TABLET PO SCH (09:25)
[2020-03-04] MEDS: OLANZapine 10 MG TABLET PO SCH ×2 (09:25→16:44)
[2020-03-04] MEDS: ESCITALOPRAM OXALATE 20 MG TABLET PO SCH (09:25)
[2020-03-04] MEDS: MUPIROCIN CALCIUM 2% 22 GM OINTMENT NASAL SCH ×2 (09:25→16:44)
[2020-03-04] MEDS: LORazepam 2 MG TABLET PO PRN (12:11)
[2020-03-04 16:23] VITALS: BP 136/82
[2020-03-05 00:41] VITALS: BP 130/81
[2020-03-05 08:00] VITALS: BP 132/68
[2020-03-05] MEDS: ESCITALOPRAM OXALATE 20 MG TABLET PO SCH (09:08)
[2020-03-05] MEDS: BuPROPion HCL XL 150 MG ER TABLET PO SCH (09:08)
[2020-03-05] MEDS: OLANZapine 10 MG TABLET PO SCH ×2 (09:08→16:28)
[2020-03-05] MEDS: GABAPENTIN 300 MG CAPSULE PO SCH ×3 (09:08→16:28)
[2020-03-05] MEDS: MUPIROCIN CALCIUM 2% 22 GM OINTMENT NASAL SCH ×2 (09:13→16:27)
[2020-03-05] MEDS: LORazepam 2 MG TABLET PO PRN ×2 (09:23→16:28)
[2020-03-05] MEDS: HALOPERIDOL 5 MG TABLET PO PRN ×2 (09:23→16:28)
[2020-03-05 16:10] VITALS: BP 116/70
[2020-03-06 05:47] VITALS: BP 124/68
[2020-03-06] MEDS: OLANZapine 10 MG TABLET PO SCH ×2 (08:49→16:38)
[2020-03-06] MEDS: GABAPENTIN 300 MG CAPSULE PO SCH ×3 (08:49→16:39)
[2020-03-06] MEDS: ESCITALOPRAM OXALATE 20 MG TABLET PO SCH (08:49)
[2020-03-06] MEDS: BuPROPion HCL XL 150 MG ER TABLET PO SCH (08:49)
[2020-03-06] MEDS: LORazepam 2 MG TABLET PO PRN ×2 (09:16→16:38)
[2020-03-06] MEDS: HALOPERIDOL 5 MG TABLET PO PRN (09:16)
[2020-03-06] MEDS: MUPIROCIN CALCIUM 2% 22 GM OINTMENT NASAL SCH ×2 (09:16→16:37)
[2020-03-06 09:38] VITALS: BP 123/76
[2020-03-06 16:00] VITALS: BP 133/86
[2020-03-07 04:30] VITALS: BP 156/92
[2020-03-07] MEDS: LORazepam 2 MG TABLET PO PRN ×3 (05:53→21:36)
[2020-03-07] MEDS: OLANZapine 10 MG TABLET PO SCH ×2 (08:34→16:57)
[2020-03-07] MEDS: MUPIROCIN CALCIUM 2% 22 GM OINTMENT NASAL SCH ×2 (08:34→16:57)
[2020-03-07] MEDS: ESCITALOPRAM OXALATE 20 MG TABLET PO SCH (08:35)
[2020-03-07] MEDS: BuPROPion HCL XL 150 MG ER TABLET PO SCH (08:35)
[2020-03-07] MEDS: GABAPENTIN 300 MG CAPSULE PO SCH ×3 (08:35→16:57)
[2020-03-07 08:43] VITALS: BP 123/74
[2020-03-07 16:09] VITALS: BP 145/96
[2020-03-07] MEDS: ZOLPIDEM TARTRATE 10 MG TABLET PO PRN (21:36)
[2020-03-08 06:20] VITALS: BP 120/96
[2020-03-08] MEDS: ESCITALOPRAM OXALATE 20 MG TABLET PO SCH (08:36)
[2020-03-08] MEDS: OLANZapine 10 MG TABLET PO SCH ×2 (08:36→17:04)
[2020-03-08] MEDS: GABAPENTIN 300 MG CAPSULE PO SCH ×3 (08:36→17:04)
[2020-03-08] MEDS: LORazepam 2 MG TABLET PO PRN ×2 (08:36→21:58)
[2020-03-08] MEDS: BuPROPion HCL XL 150 MG ER TABLET PO SCH (08:36)
[2020-03-08] MEDS: MUPIROCIN CALCIUM 2% 22 GM OINTMENT NASAL SCH (08:37)
[2020-03-08 08:58] VITALS: BP 131/83
[2020-03-08 16:11] VITALS: BP 114/79
[2020-03-08] MEDS: FERROUS SULFATE 325 MG EC TABLET PO SCH (17:04)
[2020-03-08] MEDS: ZOLPIDEM TARTRATE 10 MG TABLET PO PRN (21:58)
[2020-03-09] MEDS: FERROUS SULFATE 325 MG EC TABLET PO SCH ×2 (06:20→16:57)
[2020-03-09 06:23] VITALS: BP 139/99
[2020-03-09 08:30] VITALS: BP 135/96
[2020-03-09] MEDS: GABAPENTIN 300 MG CAPSULE PO SCH ×3 (09:25→16:57)
[2020-03-09] MEDS: BuPROPion HCL XL 150 MG ER TABLET PO SCH (09:25)
[2020-03-09] MEDS: ESCITALOPRAM OXALATE 20 MG TABLET PO SCH (09:26)
[2020-03-09] MEDS: OLANZapine 10 MG TABLET PO SCH ×2 (09:26→16:57)
[2020-03-09] MEDS: LORazepam 2 MG TABLET PO PRN ×2 (10:54→20:16)
[2020-03-09 16:11] VITALS: BP 130/76
[2020-03-09] MEDS: ZOLPIDEM TARTRATE 10 MG TABLET PO PRN (20:16)
[2020-03-10] MEDS: FERROUS SULFATE 325 MG EC TABLET PO SCH ×2 (06:10→16:40)
[2020-03-10 08:20] VITALS: BP 138/84
[2020-03-10] MEDS: GABAPENTIN 300 MG CAPSULE PO SCH ×3 (09:06→16:40)
[2020-03-10] MEDS: LORazepam 2 MG TABLET PO PRN ×2 (09:06→16:40)
[2020-03-10] MEDS: OLANZapine 10 MG TABLET PO SCH ×2 (09:06→16:40)
[2020-03-10] MEDS: ESCITALOPRAM OXALATE 20 MG TABLET PO SCH (09:06)
[2020-03-10] MEDS: BuPROPion HCL XL 150 MG ER TABLET PO SCH (09:06)
[2020-03-10 16:00] VITALS: BP 136/74
[2020-03-11 04:04] VITALS: BP 120/81
[2020-03-11] MEDS: FERROUS SULFATE 325 MG EC TABLET PO SCH ×2 (06:54→16:55)
[2020-03-11 08:17] VITALS: BP 129/93
[2020-03-11] MEDS: OLANZapine 10 MG TABLET PO SCH ×2 (08:58→16:55)
[2020-03-11] MEDS: GABAPENTIN 300 MG CAPSULE PO SCH ×3 (08:58→16:55)
[2020-03-11] MEDS: BuPROPion HCL XL 150 MG ER TABLET PO SCH (08:58)
[2020-03-11] MEDS: ESCITALOPRAM OXALATE 20 MG TABLET PO SCH (08:58)
[2020-03-11] MEDS: LORazepam 2 MG TABLET PO PRN ×2 (09:57→16:55)
[2020-03-11 16:15] VITALS: BP 134/87
[2020-03-12 06:18] VITALS: BP 155/79
[2020-03-12] MEDS: FERROUS SULFATE 325 MG EC TABLET PO SCH ×2 (06:19→16:43)
[2020-03-12] MEDS: LORazepam 2 MG TABLET PO PRN ×2 (06:24→16:43)
[2020-03-12 08:30] VITALS: BP 98/65
[2020-03-12] MEDS: ESCITALOPRAM OXALATE 20 MG TABLET PO SCH (08:48)
[2020-03-12] MEDS: OLANZapine 10 MG TABLET PO SCH ×2 (08:48→16:43)
[2020-03-12] MEDS: BuPROPion HCL XL 150 MG ER TABLET PO SCH (08:48)
[2020-03-12] MEDS: GABAPENTIN 300 MG CAPSULE PO SCH ×3 (08:48→16:43)
[2020-03-12 16:15] VITALS: BP 155/97
[2020-03-13 05:28] VITALS: BP 132/78
[2020-03-13] MEDS: FERROUS SULFATE 325 MG EC TABLET PO SCH ×2 (06:20→17:10)
[2020-03-13] MEDS: LORazepam 2 MG TABLET PO PRN ×3 (06:26→23:53)
[2020-03-13 08:16] VITALS: BP 138/86
[2020-03-13] MEDS: ESCITALOPRAM OXALATE 20 MG TABLET PO SCH (08:17)
[2020-03-13] MEDS: OLANZapine 10 MG TABLET PO SCH ×2 (08:17→17:10)
[2020-03-13] MEDS: BuPROPion HCL XL 150 MG ER TABLET PO SCH (08:17)
[2020-03-13] MEDS: GABAPENTIN 300 MG CAPSULE PO SCH ×3 (08:17→17:10)
[2020-03-13] MEDS: HALOPERIDOL 5 MG TABLET PO PRN (14:48)
[2020-03-13 16:18] VITALS: BP 136/88
[2020-03-13] MEDS: ZOLPIDEM TARTRATE 10 MG TABLET PO PRN (23:52)
[2020-03-14 04:50] VITALS: BP 123/67
[2020-03-14] MEDS: FERROUS SULFATE 325 MG EC TABLET PO SCH ×2 (06:05→16:50)
[2020-03-14] MEDS: LORazepam 2 MG TABLET PO PRN ×2 (07:04→14:26)
[2020-03-14 08:23] VITALS: BP 139/88
[2020-03-14] MEDS: OLANZapine 10 MG TABLET PO SCH ×2 (08:43→16:50)
[2020-03-14] MEDS: GABAPENTIN 300 MG CAPSULE PO SCH ×3 (08:43→16:50)
[2020-03-14] MEDS: BuPROPion HCL XL 150 MG ER TABLET PO SCH (08:43)
[2020-03-14] MEDS: ESCITALOPRAM OXALATE 20 MG TABLET PO SCH (08:49)
[2020-03-14 16:19] VITALS: BP 138/83
[2020-03-15 01:53] VITALS: BP 129/81
[2020-03-15] MEDS: FERROUS SULFATE 325 MG EC TABLET PO SCH (06:09)
[2020-03-15] MEDS: LORazepam 2 MG TABLET PO PRN (06:17)
[2020-03-15] MEDS ORDERED: BUPR-93 PO (08:36)
[2020-03-15] MEDS: OLANZapine 10 MG TABLET PO SCH (08:52)
[2020-03-15] MEDS: BuPROPion HCL XL 150 MG ER TABLET PO SCH (08:52)
[2020-03-15] MEDS: GABAPENTIN 300 MG CAPSULE PO SCH (08:53)
[2020-03-15] MEDS: ESCITALOPRAM OXALATE 20 MG TABLET PO SCH (08:53)
[2020-03-15 09:33] VITALS: BP 113/57
== END 2020-03-15 11:51 | disposition home or self-care (01) | DRG 753 ==
LOC: B2S 06:00 → B3A 03-03 00:04
DX: F31.4 Bipolar disorder, current episode depressed, severe, without psychotic features (principal); R45.851 Suicidal ideations; Z59.0 Homelessness; I10 Essential (primary) hypertension; E78.5 Hyperlipidemia, unspecified; D64.9 Anemia, unspecified; Z91.5 Personal history of self-harm; F15.20 Other stimulant dependence, uncomplicated; Z03.818 Encounter for observation for suspected exposure to other biological agents ruled out
CPT/HCPCS: 83036; 84439; 84443; 87081; 87147; J1200; J1630; J2060

== ENCOUNTER 2020-03-02 23:45 | Emergency (ER) | payer MEDICAID ==
[~2020-03-02] VITALS: Ht 175.3 cm; Wt 81.0 kg
[2020-03-03] MEDS ORDERED: LIDOCAINE 1%/EPI 1:200,000/PF 10 ML VIAL INJ ONE
[2020-03-03] MEDS ORDERED: BACITRACIN 0.9 GM PACKET OINTMENT TP ONE (00:30)
[2020-03-03 00:50] VITALS: BP 134/80
== END 2020-03-03 00:38 | disposition home or self-care (01) ==
LOC: EMS 23:45
DX: S05.41XA Penetrating wound of orbit with or without foreign body, right eye, initial encounter (principal); Z79.899 Other long term (current) drug therapy; W01.0XXA Fall on same level from slipping, tripping and stumbling without subsequent striking against object, initial encounter; Y93.89 Activity, other specified; Y92.89 Other specified places as the place of occurrence of the external cause; Y99.8 Other external cause status
CPT/HCPCS: 12011; 99283; J3490